=== PATIENT | female | born 2000 ===

== ENCOUNTER 2022-02-26 11:17 | Inpatient (IN) | payer MEDICAID ==
[2022-02-27] MEDS ORDERED: Ferrous Sulfate 325 MG Tab PO ONE (08:30)
[2022-02-27] MEDS ORDERED: Benzocaine/Menthol 20%-0.5% Spray 78 GM Cannister TOP ONE (10:40)
[2022-02-27] MEDS ORDERED: Docusate Sodium 100 MG Cap PO ONE (20:00)
[2022-02-27] MEDS ORDERED: Ibuprofen 800 MG Tab PO ONE (20:00)
[2022-02-28] MEDS ORDERED: Prenatal Multivitamin with Calcium/Folic Acid/Iron Tab PO ONE (08:30)
[2022-03-23 10:03] LABS: ANION GAP 9.6 mEq/L (7-13); CHLORIDE,CL 101 mmol/L (98-107); ESTIMATED GFR 143 mL/min (>=60); SODIUM,NA 128 mmol/L (136-145)
== END 2022-02-28 12:00 | disposition home or self-care (01) | DRG 806 ==
LOC: DL.OBCHECK 11:17 → DL.ZCENSUS 11:18 → OBSVTOIN 02-27 09:58
PROVIDERS: ADMIT Obstetrics & Gynecology; ATTEND Obstetrics & Gynecology
PROC: 10E0XZZ Delivery of Products of Conception, External Approach (ICD-10-PCS; principal; 2022-02-26)
PROC: 0KQM0ZZ Repair Perineum Muscle, Open Approach (ICD-10-PCS; 2022-02-26)
PROC: 10907ZC Drainage of Amniotic Fluid, Therapeutic from Products of Conception, Via Natural or Artificial Opening (ICD-10-PCS; 2022-02-26)
PROC: 3E0P7VZ Introduction of Hormone into Female Reproductive, Via Natural or Artificial Opening (ICD-10-PCS; 2022-02-26)
PROC: 3E033VJ Introduction of Other Hormone into Peripheral Vein, Percutaneous Approach (ICD-10-PCS; 2022-02-26)
PROC: 3E0R3BZ Introduction of Anesthetic Agent into Spinal Canal, Percutaneous Approach (ICD-10-PCS; 2022-02-26)
PROC: 3E02340 Introduction of Influenza Vaccine into Muscle, Percutaneous Approach (ICD-10-PCS; 2022-02-28)
DX: O13.4 Gestational [pregnancy-induced] hypertension without significant proteinuria, complicating childbirth (principal); D62 Acute posthemorrhagic anemia; Z37.0 Single live birth; O99.214 Obesity complicating childbirth; O70.1 Second degree perineal laceration during delivery; Z3A.39 39 weeks gestation of pregnancy; O99.02 Anemia complicating childbirth; Z86.16 Personal history of COVID-19; Z23 Encounter for immunization
CPT/HCPCS: 01967; 36415; 51702; 59409; 80053; 83615; 84156; 85027; 86592; 86593; 86780; 86850; 86900; 86901; A9270-GY; U0002